=== PATIENT | female | born 1955 | race Caucasian/White ===

== ENCOUNTER → 2016-10-03 | Outpatient (CLI) | payer OTHER ==
[~2016-10-03] MED LIST: ALBU0.08 INH; ALBU1AER9 INH; ASPEC81 PO; ATOR-24 PO; CETI10TA84 PO; EFFSR75 PO; FLUO0.0566 TOP; FLUT0.15 NAE; FLVHFA110 INH; LPR25 PO; LSN40 PO; PRD20 PO; PRT40 PO; SPT/ PO; ZOLP1TAB PO
--- NOTE | 2016-10-03 08:37 | DIAGNOSTIC IMAGING REPORT ---
ADDENDUM Addendum for voice recognition error in Impression IMPRESSION: Low PROBABILITY of pulmonary embolus. Mild central air trapping. Electronically signed by: Zhou Taylor M.D. 10/07/2016 1:53 PM Dictated Date/Time: 10/07/2016 11:44 AM ORIGINAL REPORT NUCLEAR MEDICINE VENTILATION/PERFUSION SCAN CLINICAL HISTORY: Chest pain. Dyspnea. COMPARISON: None TECHNIQUE: For the ventilation portion of this exam, 33 820 mCi of DTPA was inhaled at . Immediately following inhalation, imaging of the chest was carried out in the anterior, posterior, left lateral, right lateral, LPO, RPO, ZULEMA and MAYFIELD projections. For the perfusion portion of exam, 5.7 mCi of technetium 99m MAA was injected IV at 8:40 AM. Immediately following injection, imaging of the chest was carried out in the same projections. FINDINGS: Slight inhomogeneity of ventilation as well as perfusion. No major ventilation perfusion mismatch. Mild central air trapping. IMPRESSION: Low probably of pulmonary embolus. Mild central air trapping. Electronically signed by: Zhou Taylor M.D. 10/03/2016 8:36 AM Dictated Date/Time: 10/03/2016 8:33 AM
--- NOTE | 2016-10-03 08:39 | DIAGNOSTIC IMAGING REPORT ---
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 There is no evidence of focal pulmonary consolidation. There is no evidence of failure. No pleural effusions are visualized.[ There are postsurgical changes present within the cervical spine. IMPRESSION: No active disease in the chest. Electronically signed by: Harrison Goel M.D. 10/03/2016 8:37 AM Dictated Date/Time: 10/03/2016 8:37 AM
== END | disposition home or self-care (01) ==
LOC: C.NUCL 07:21
PROVIDERS: ATTEND Internal Medicine Nephrology
DX: N04.2 Nephrotic syndrome with diffuse membranous glomerulonephritis (principal); R00.0 Tachycardia, unspecified; R06.09 Other forms of dyspnea; N18.3 Chronic kidney disease, stage 3 (moderate); R09.89 Other specified symptoms and signs involving the circulatory and respiratory systems

== ENCOUNTER 2017-10-09 15:24 | Emergency (ER) | payer OTHER ==
[~2017-10-09] VITALS: Ht 167.6 cm; Wt 97.3 kg
[~2017-10-09 15:24] MED LIST changes: -ASPEC81 PO; +ASPI-320 PO
[2017-10-09 15:28] VITALS: Ht 167.6 cm; Wt 97.3 kg
[2017-10-09 16:32] LABS: BASO % 0.2 %; BASO ABS # 0.02 K/uL (0-0.2); EOS ABS # 0.26 K/uL (0-0.5); HEMATOCRIT 34.5 % (37-47); HEMOGLOBIN 11.2 g/dL (12.0-16.0); IG# 0.13 K/uL (0.00-0.02); LYMPH % 24.2 %; LYMPH ABS # 2.11 K/uL (1.2-3.4); MEAN CELL VOLUME 90.6 fL (80-100); MEAN CORPUSCULAR HEMOGLOBIN 29.4 pg (25-34); MEAN CORPUSCULAR HGB CONC 32.5 g/dl (32-36); MEAN PLATELET VOLUME 8.9 fL (7.4-10.4); MONO % 8.7 %; MONO ABS # 0.76 K/uL (0.11-0.59); NEUT % 62.4 %; NEUT ABS # 5.43 K/uL (1.4-6.5); PLATELET COUNT 296 K/uL (130-400); RED CELL DISTRIBUTION WIDTH CV 13.8 % (11.5-14.5); RED CELL DISTRIBUTION WIDTH SD 46.3 fL (36.4-46.3); WHITE BLOOD COUNT 8.71 K/uL (4.8-10.8)
[2017-10-09] MEDS ORDERED: LIDOCAINE/EPINEPHRINE 1% 20 ML VIAL INFIL ONE (16:45)
[2017-10-09] MEDS ORDERED: LISI40TA PO (16:46)
[2017-10-09] MEDS ORDERED: ALBU18002 INH (16:46)
[2017-10-09] MEDS ORDERED: SULF800T23 PO ×2 (16:46→17:27)
[2017-10-09] MEDS ORDERED: PANT1TAB3 PO (16:46)
[2017-10-09] MEDS ORDERED: ALBINS/ INH (16:46)
[2017-10-09 16:50] LABS: CALCIUM 8.4 mg/dl (8.5-10.1); CREATININE 1.59 mg/dl (0.60-1.20); POTASSIUM 4.4 mmol/L (3.5-5.1)
[2017-10-09] MEDS ORDERED: CEPH500C PO (17:27)
--- NOTE | 2017-10-09 17:30 | EMERGENCY ROOM VISIT NOTE ---
History First contact with patient: 15:32 Chief Complaint: WOUND INFECTION Stated Complaint: ABCESS ON STOMACH Nursing Triage Summary: Patient c/o of abdominal abcess. History of Present Illness The patient is a 62 year old female who presents to the Emergency Room with complaints of an abdominal abscess. The patient states that she developed pain and swelling in her abdomen last week. She was seen by her PCP 8 days ago and had an incision and drainage of an abscess. The patient states that she had purulent drainage for the next few days. She was placed on Bactrim. She states that she went back today for a recheck and they referred her here. She believes that they talked to a general surgeon. She denies any history of abscesses. She is not a diabetic. She rates her overall discomfort a 10/10. Review of Systems A complete 10 point review of systems was reviewed with the patient with pertinent positives and negatives as per history of present illness. All else were negative. Past Medical/Surgical History Medical Problems: (1) Asthma (2) Dyslipidemia (3) GERD (gastroesophageal reflux disease) (4) HTN (hypertension) (5) idiopathic membranous nephropathy (6) Nephrotic syndrome (7) Pancreatitis (8) Poorly controlled blood pressure Surgical Problems: (1) H/O oophorectomy (2) History of hysterectomy (3) History of sphincterotomy of sphincter of Oddi (4) History of tonsillectomy and adenoidectomy (5) Hx of cholecystectomy Family History Cancer Diabetes mellitus Gallbladder disease Heart disease Hypertension Kidney disease Lung disease Social History Smoking Status: Never Smoker Alcohol Use: none Drug Use: none Marital Status: Housing Status: lives with significant other Occupation Status: employed Current/Historical Medications Scheduled Aspirin (Aspirin EC Low Dose), 81 MG PO DAILY Atorvastatin (Lipitor), 40 MG PO DAILY Cephalexin Monohydrate (Keflex), 500 MG PO QID Cetirizine (Zyrtec), 10 MG PO DAILY Lisinopril (Zestril), 40 MG PO QAM Metoprolol Tartrate (Lopressor), 25 MG PO BID Pantoprazole (Protonix), 40 MG PO BID Sulfa/Trimethoprim (Bactrim Ds 800MG/160MG), 1 TAB PO BID Sulfamethoxazole-Trimethoprim (Bactrim Ds 800MG/160MG), 1 TAB PO BID Venlafaxine Hcl (Effexor Extended Rel), 75 MG PO DAILY Zolpidem Tartrate (Ambien Er), 12.5 MG PO HS Scheduled PRN Albuterol Sulf (Proventil 0.083% 2.5MG/3ML), 2.5 MG INH QID PRN for SOB/Wheezing Albuterol Sulfate (Proair Respiclick), 2 PUFFS INH QID PRN for SOB/Wheezing Fluticasone Propionate (Flovent Hfa), 2 PUFFS INH BID PRN for SOB/Wheezing Fluticasone Propionate (Nasal) (Flonase Allergy Relief), 2 SPRAYS RAUL DAILY PRN for Allergy Symptoms Physical Exam Vital Signs Date Time Temp Pulse Resp B/P (MAP) Pulse Ox O2 Delivery O2 Flow Rate FiO2 10/09/17 18:54 36.7 80 20 132/78 98 10/09/17 18:30 80 20 132/78 98 Room Air 10/09/17 15:28 36.7 80 20 128/70 98 Room Air Physical Exam VITALS: Vitals are noted on the nurse's note and reviewed by myself. Vital signs stable. GENERAL: This is a 62-year-old female, in no acute distress, nondiaphoretic, well-developed well-nourished. SKIN: There is an area of erythema and induration measuring approximately 15 x 5 cm to the left lower abdomen with a central area of fluctuance. No drainage. HEART: Regular rate and rhythm without murmurs gallops or rubs. LUNGS: Clear to auscultation bilaterally without wheezes, rales or rhonchi. ABDOMEN: Positive bowel sounds x 4. No abdominal tenderness to palpation. NEURO: Patient was alert and oriented to person place and time. Medical Decision & Procedures Laboratory Results 10/09/17 16:05 Red Blood Count 3.81, Mean Corpuscular Volume 90.6, Mean Corpuscular Hemoglobin 29.4, Mean Corpuscular Hemoglobin Concent 32.5, Mean Platelet Volume 8.9, Neutrophils (%) (Auto) 62.4, Lymphocytes (%) (Auto) 24.2, Monocytes (%) (Auto) 8.7, Eosinophils (%) (Auto) 3.0, Basophils (%) (Auto) 0.2, Neutrophils # (Auto) 5.43, Lymphocytes # (Auto) 2.11, Monocytes # (Auto) 0.76, Eosinophils # (Auto) 0.26, Basophils # (Auto) 0.02 10/09/17 16:05 Test 10/09/17 16:05 White Blood Count 8.71 K/uL (4.8-10.8) Red Blood Count 3.81 M/uL (4.2-5.4) Hemoglobin 11.2 g/dL (12.0-16.0) Hematocrit 34.5 % (37-47) Mean Corpuscular Volume 90.6 fL (80-100) Mean Corpuscular Hemoglobin 29.4 pg (25-34) Mean Corpuscular Hemoglobin Concent 32.5 g/dl (32-36) Platelet Count 296 K/uL (130-400) Mean Platelet Volume 8.9 fL (7.4-10.4) Neutrophils (%) (Auto) 62.4 % Lymphocytes (%) (Auto) 24.2 % Monocytes (%) (Auto) 8.7 % Eosinophils (%) (Auto) 3.0 % Basophils (%) (Auto) 0.2 % Neutrophils # (Auto) 5.43 K/uL (1.4-6.5) Lymphocytes # (Auto) 2.11 K/uL (1.2-3.4) Monocytes # (Auto) 0.76 K/uL (0.11-0.59) Eosinophils # (Auto) 0.26 K/uL (0-0.5) Basophils # (Auto) 0.02 K/uL (0-0.2) RDW Standard Deviation 46.3 fL (36.4-46.3) RDW Coefficient of Variation 13.8 % (11.5-14.5) Immature Granulocyte % (Auto) 1.5 % Immature Granulocyte # (Auto) 0.13 K/uL (0.00-0.02) Anion Gap 6.0 mmol/L (3-11) Est Creatinine Clear Calc Drug Dose 42.0 ml/min Estimated GFR () 39.4 Estimated GFR (Non- 34.0 BUN/Creatinine Ratio 15.8 (10-20) Calcium Level 8.4 mg/dl (8.5-10.1) Procedure I examined the patient. Verbal consent was obtained to perform the procedure. After saline and Betadine cleansing and 4 mL of 1% buffered lidocaine anesthesia , the abscess was incised with a number 11 scalpel blade. A large amount of purulent material was released with more expressed by pressure. A swab was obtained for culture. The abscess cavity was further probed with a needle steam train driver and the deep pocket expressed. The abscess cavity was then copiously irrigated with sterile saline under pressure. The area was then packed with plain packing. The area was cleaned with sterile saline and dressed with bacitracin and a bulky bandage. The patient tolerated the procedure well. Medical Decision Differential diagnosis includes abscess, cellulitis, failed outpatient therapy, among others. The patient was evaluated as above. Labs revealed no leukocytosis. Culture results were brought with the patient and were reviewed. The wound grew out Staphylococcus aureus, resistant to methicillin and penicillin. Bedside ultrasound was performed and showed a small fluid collection approximately 2 cm deep. Incision and drainage was performed as noted above. Packing was placed. The patient will be placed on a slightly extended course of Bactrim and Keflex will be added. I did confirm with the pharmacist that no renal adjustment was needed. I did speak with Dr. Dietrich of general surgery, who agrees that the patient can be seen in the office on Thursday for packing removal and follow-up. She was advised to return here with any worsening or new/ concerning symptoms. She verbalized understanding of my assessment and treatment plan and was discharged home in good condition. Medication Reconcilliation Current Medication List: was personally reviewed by me Blood Pressure Screening Patient's blood pressure: Normal blood pressure Impression Primary Impression: Abdominal wall abscess Departure Information Dispostion Home / Self-Care Condition GOOD Prescriptions Sulfa/Trimethoprim (Bactrim Ds 800MG/160MG) Tab 1 TAB PO BID for 7 Days, #14 TAB Prov: Leny Diaz PA-C 10/09/17 Cephalexin Monohydrate (Keflex) 500 Mg Cap 500 MG PO QID for 7 Days, #28 CAP Prov: Leny Diaz PA-C 10/09/17 Referrals Everardo Love M.D. (PCP) Patient Instructions My [facility] Additional Instructions You were seen in the Emergency Department for Incision and Drainage of her abdominal abscess. Keep the packing in place until follow-up. Contact [facility] surgery first thing Thursday morning to schedule follow-up. I already spoke to them regarding your case. You were prescribed Keflex and Bactrim to be taken as prescribed. Both of these medications are antibiotics. Stop these medications and contact a medical provider if you were to develop any significant adverse side effects including: wheezing, shortness of breath, passing out, vomiting, or a diffuse rash. Always take antibiotics as directed and COMPLETE the ENTIRE course regardless of the improvement of your symptoms. Proper wound care is essential for adequate wound healing and infection prevention. Change your dressing when it becomes saturated or at least once a day. Look for signs of infection of the wound including: increased pain, swelling, foul discharge, streaking, or increased temperature. If any of these are noticed you should return to the Emergency Department for further assessment and treatment. As with any laceration you may have received nerve damage to the surrounding tissues. This damage may or may not be permanent. For pain control, you can use the following [id number] medicines (if >12 yo): - Regular strength (325mg/tab) Tylenol (acetaminophen) 2 tabs every 4-6 hours as needed. Do not exceed 12 tablets in a 24 hour period. Avoid taking more than 4 grams (4000 mg) of Tylenol per day. This includes any other sources of acetaminophen you may take on a regular basis. - Regular strength (200 mg/tab) Advil (ibuprofen) 1-2 tabs every 4-6 hours as needed. Do not exceed a dose of 3200 mg per day. Return to the emergency department if your symptoms worsen despite treatment course outlined above.
[2017-10-09 18:54] VITALS: BP 132/78; PULSE 80; TEMP 36.7; O2SAT 98
== END 2017-10-09 18:55 | disposition home or self-care (01) ==
LOC: C.EDB 15:26 → C.EDC 18:55
DX: L02.211 Cutaneous abscess of abdominal wall (principal); J45.909 Unspecified asthma, uncomplicated; E78.5 Hyperlipidemia, unspecified; K21.9 Gastro-esophageal reflux disease without esophagitis; I10 Essential (primary) hypertension; Z90.722 Acquired absence of ovaries, bilateral; Z90.710 Acquired absence of both cervix and uterus; Z90.49 Acquired absence of other specified parts of digestive tract; Z80.9 Family history of malignant neoplasm, unspecified; Z83.3 Family history of diabetes mellitus; Z82.49 Family history of ischemic heart disease and other diseases of the circulatory system; Z84.1 Family history of disorders of kidney and ureter; Z83.79 Family history of other diseases of the digestive system; Z79.82 Long term (current) use of aspirin; Z79.899 Other long term (current) drug therapy